=== PATIENT | female | born 1960 | race Caucasian/White ===

== ENCOUNTER 2024-09-06 12:16 | Emergency (ER) | payer BC, SELFPAY ==
[2024-09-06 12:17] VITALS: BP 157/85
--- NOTE | 2024-09-06 13:59 | ED.GENMED ---
History of Present Illness
General
Chief Complaint: Breathing Problem
Source: patient
Exam Limitations: none
Time Seen by Provider: 09/06/24 13:44
Nursing documentation reviewed up to this point in time: agreed with
History of Present Illness
History of Present Illness:
The patient is a pleasant 63 y.o female presenting to the emergency department with multiple complaints today. Patient states she has felt generally �unwell� since May (3 months). She reports feeling extremely tired with little appetite.
Patient states that she has not been as active as she typically is. Over the past 2 weeks she notes a 10 pound weight gain and feeling mildly short of breath. Patient denies any fever, cough, chest pain or abdominal pain. However - she does feel
boated. No nausea, vomiting or swelling in lower extremities. No recent travel or recent surgeries.
Patient takes multiple psychiatric medications and is currently undergoing changes as it was felt that these symptoms may be medication related.
Review of Systems
Review of Systems
Allergies reviewed?: Yes
All Other Systems: ROS reviewed and negative except as documented in HPI and ROS
Phy Exam
Physical Exam
Physical Exam:
Vitals: Mildly hypertensive, otherwise vital signs stable.
General: Patient is well appearing, no acute distress
Skin: Warm and dry, no rashes or lesions
Head: Normocephalic, atraumatic
Eyes: Sclera nonicteric. EOMs intact. No nystagmus.
Throat: Protecting airway
Neck: Normal ROM, no cervical spine tenderness, no meningismus. No JVD
Cardiac: Regular rate and rhythm, no murmurs.
Pulm: Normal respiratory effort, no wheezes, rales, rhonchi heard on exam.
Abdomen: Mild distention. Abdomen soft and nontender throughout. No rebound tenderness or guarding.
Extremities: No evidence of cyanosis or edema. Palpable DP pulses bilaterally.
Neuro: AAOx3. Grossly intact.
Psychiatric: Normal affect.
Scores
Heart Failure Risk
Heart Failure Risk Score: Not Applicable
Course
Orders/Labs/Results
Orders:
Orders
09/06/24 12:21
Electrocardiogram (*1) Urgent
Reason for Study: Shortness of Breath
EKG- Treatment ONCE
09/06/24 13:55
CR Chest - 2 Views Urgent
Comment:
Reason For Exam: exertional SOB
09/06/24 14:26
Complete Blood Count/With Diff Urgent
Comprehensive Metabolic Panel Urgent
Lipase Urgent
NT-proBNP Urgent
Troponin I Urgent
Urinalysis Reflex To Culture Urgent
Date Specimen was Collected: 09/06/24
Time Specimen was Collected: 13:56
Urine Microscopic Reflex Cult Urgent
Urine Culture Urgent
JULIAN Source: U
Specimen Description:
Date Specimen was Collected: 09/06/24
Time Specimen was Collected: 13:56
09/06/24 16:03
CT Abd/pelvis W Iv Cont Urgent
Comment:
Reason For Exam: abdominal distention, diffuse pain
Abnormal Lab Results
09/06/24
14:26
Hct 36.6 L %
(37.0-47.0)
MPV 11.4 H fL
(7.4-10.4)
Chloride 111 H mmol/L
(98-107)
Leukocyte Esterase Rfl 1+ A
(Negative)
Urine Bacteria (Reflex) Few A
(Negative)
09/06/24 14:26
09/06/24 14:26
Vital Signs
Initial and Last Documented VS:
Initial Vital Signs
Temp Pulse Resp BP Pulse Ox
98 F 54 16 157/85 98
09/06/24 12:17 09/06/24 12:17 09/06/24 12:17 09/06/24 12:17 09/06/24 12:17
Last Documented Vital Signs
Temp Pulse Resp BP Pulse Ox
98 F 50 10 165/94 96
09/06/24 12:17 09/06/24 18:30 09/06/24 18:30 09/06/24 19:34 09/06/24 18:30
MDM/Problems Addressed
Differential Diagnosis Includes:
Not limited to: anemia, electrolyte imbalance, cardiac arrhythmia, congestive heart failure, abdominal ascites, medication side effect, malignancy, etc
MDM/Problems Addressed:
Patient is a 63 year-old female presenting with fatigue and weakness for the past few months. No exertional or pleuritic chest pain. No fevers, cough, abdominal pain or vomiting. Hypertensive otherwise stable vital signs. Physical exam as above.
Patient well appearing and in no distress. There is a minimal amount of abdominal distention although abdomen is soft and nontender. Cardio/pulmonary assessment unremarkable. Differential very broad at this time. Will send screening labs, UA. Will
check pro-BNP, troponin, and chest xray given shortness of breath and abdominal swelling. Patient stable and in no distress. Will closely monitor and reassess.
Update: Labs reviewed. No clinically significant abnormalities. Pro-BNP negative. Troponin undetectable. Do not suspect CHF or acute coronary syndrome. EKG shows sinus bradycardia without acute ischemic changes. Patient has a length history of
bradycardia. Chest x-ray w/o acute findings. Given abdominal distention � CT scan of abdomen/pelvis was obtained without acute abnormalities. Patient was made aware of multiple cysts on liver and kidneys and given copy of report to follow up with
primary care. Ultimately � work up in the emergency department has been negative. Very low suspicion for acute infectious process given patient is afebrile with benign abdominal exam and no leukocytosis. Do not suspect emergent cardiac/pulmonary
etiology. Admit not indicated. At this point feel patient stable for discharge home with primary care follow up. Return precautions discussed. Patient comfortable with this plan.
Chronic conditions affecting care:
N/A
Acute Exacerbation and/or Progression of Chronic Illness:
N/A
*Radiology
Radiology exam reviewed: preliminary read by ED provider (chest x-ray reviewed by ny - no acute abnormalities) and radiology read reviewed
*Pulse Oximetry
Patient hypoxic: no
*EKG
Interpreted by ED Provider?: Yes
EKG Intrepretation Date: 09/06/24
Interpretation: abnormal
Comparison EKG: no changes
Heart Rate: 49
Rate: bradycardiac
Rhythm: sinus
[place]: normal axis
Interval: normal interval
QRS Pattern: normal QRS
Ischemia: no ischemia
*Field Installation Technician Interpretation
Rate: normal and Field Installation Technician- N/A
Interpretation: normal
Heart Rate: 56
Rhythm: sinus
*Critical Care Note
Total Time (30-74mins, 75-104mins- exclusive of procedures): Not Applicable
ED Attending Note
-
Portions of this chart may have been created with voice recognition software.� Occasional wrong word or��sound alike� substitutions may have occurred due to the inherent limitations of voice recognition software.
Discharge Plan
Departure
Patient Disposition: Home (Routine Discharge)
Date of Disposition: 09/06/24
Time of Disposition: 19:25
Patient with high blood pressure during this ER visit?: Yes
Condition: Good
Covid-19: Not Applicable
Discharge Problem:
Fatigue
Instructions: Fatigue (DC), BLOOD PRESSURE
Referrals:
Nicola Faria MD [Family Provider] - Follow up in 5-7 days
Activity Restrictions/Additional Instructions:
Return to the emergency department with any high fevers, persistent/worsening abdominal pain, chest pain, shortness of breath, lightheadedness/dizziness, worsening in current symptoms, or any other concerns
-As discussed your lab work and CT imaging showed no acute abnormalities in the emergency department.. You were found to have cysts on your liver and kidneys.
-You were found to have cysts on your liver and kidneys.
-Stay well-hydrated. Continue to take your medications as prescribed.
-Follow-up with primary care for further evaluation/management to ensure that symptoms are improving.
Monitor your symptoms closely and return to the emergency department with any acute worsening/new symptoms or any other concerns
Interventions
Interventions:
*Risk Screen - Suicide Last Done: 09/06/24 12:17
*General Assessment Last Done: 09/06/24 14:40
*Neglect/Abuse Screening Last Done: 09/06/24 12:17
*ED- Fall Risk Assessment Last Done: 09/06/24 14:40
*ED COVID-19 Vaccine History Last Done: 09/06/24 14:40
*Nursing Disposition Last Done: 09/06/24 19:34
ED- Cardiac Assessment Last Done: 09/06/24 14:40
ED- Pulmonary Assessment Last Done: 09/06/24 14:40
Discharge Date and Time
Discharge Date/Time: 09/06/24 19:35
Print Language: [id number]
[2024-09-06 14:38] LABS: % Basophils 1.3 % (0-2); % Eosinophils 2.4 % (0-6); % Immature Granulocytes 0.4 % (0-0.5); % Monocytes 6.8 % (1.7-9.3); % Neutrophils 58.1 % (42.2-75.2); Absolute Basophils 0.1 10^3/uL (0-0.2); Absolute Eosinophils 0.1 10^3/uL (0-0.7); Absolute Lymphocytes 1.7 10^3/uL (1.2-3.4); Absolute Monocytes 0.4 10^3/uL (0.1-0.6); Absolute Neutrophils 3.2 10^3/uL (1.4-6.5); Hematocrit 36.6 % (37.0-47.0); Hemoglobin 12.4 g/dL (12.0-16.0); Mean Corp Hgb Conc. 33.9 g/dL (33.0-37.0); Mean Corpuscular Hgb 29.1 pg (27.0-31.0); Mean Corpuscular Volume 85.9 fL (81.0-99.0); Mean Platelet Volume 11.4 fL (7.4-10.4); Nucleated Red Blood Cells % 0 %; Platelet Count 164 10^3/uL (130-400); Red Blood Cell Count 4.26 10^6/uL (4.20-5.40); Red Cell Dist. Width 13.2 % (11.5-14.5); White Blood Cell Count 5.5 10^3/uL (4.8-10.8)
[2024-09-06 14:39] LABS: Urine Albumin Negative (Neg - Trace); Urine Bilirubin Negative (Negative); Urine Character Clear (Clear); Urine Color Yellow; Urine Glucose Negative (Negative); Urine Ketone Negative (Negative); Urine Leukocyte 1+ (Negative); Urine Nitrite Negative (Negative); Urine Occult Blood Negative (Negative); Urine Specific Gravity 1.015 (<1.030); Urine Urobilinogen Negative (Neg - 1+); Urine pH 6.5 (5.0-9.0)
[2024-09-06 14:52] LABS: ALT (SGPT) 17 U/L (0-35); AST (SGOT) 21 U/L (14-36); Albumin 4.1 g/dl (3.5-5.0); Alkaline Phosphatase 69 U/L (38-126); Blood Urea Nitrogen 15 mg/dl (7-17); Calcium 10.2 mg/dl (8.4-10.2); Carbon Dioxide 25 mmol/L (22-30); Chloride 111 mmol/L (98-107); Glucose 91 mg/dl (70-99); Lipase 66 U/L (23-300); Potassium 4.3 mmol/L (3.5-5.1); Sodium 141 mmol/L (135-145); Total Bilirubin 0.5 mg/dl (0.2-1.3); Total Protein 6.8 g/dl (6.3-8.2); eGFR > 60.00
[2024-09-06 15:00] VITALS: BP 138/80
[2024-09-06 15:03] LABS: NT-proBNP 133 pg/ml; Troponin I < 0.012 ng/ml; Urine Bacteria Few (Negative); Urine Red Blood Cell 0-2 /HPF (0-2)
[2024-09-06 16:00] VITALS: BP 148/69
[2024-09-06 17:00] VITALS: BP 163/93
[2024-09-06 19:34] VITALS: BP 165/94
== END 2024-09-06 19:35 | disposition home or self-care (01) ==
LOC: EMR 12:16
PROVIDERS: Physician Assistant; EMERGENCY PHYSICIAN Emergency Medicine; FAMILY PHYSICIAN Family Medicine
DX: R53.83 Other fatigue (principal)
CPT/HCPCS: 99284; 71046; 74177; 80053; 81003; 81015; 83690; 83880; 84484; 85025; 87086; 93005; Q9967